=== PATIENT | male | born 1990 | race Caucasian/White ===

== ENCOUNTER 2025-01-11 18:09 | Emergency (ER) | payer OTHER, SELFPAY ==
[2025-01-11 18:12] VITALS: BP 163/86; PULSE 118; RESP 20; TEMP 37.4; O2SAT 98
--- NOTE | 2025-01-11 19:26 | ED.GENADULT ---
HPI - General Adult General Chief complaint: Unspecified Stated complaint: sore throat x10 days Time Seen by Provider: 01/11/25 19:09 History of Present Illness HPI narrative: Patient is a 34-year-old gentleman presents emergency department chief complaint of sore throat runny nose for the last 10 days patient reports he had a low-grade temperature today reports that he has achiness his left upper molars as well patient reports he was using some for strep for about 10 days ago and has when his symptoms started patient reports no abscess Related Data Allergies Allergy/AdvReac Type Severity Reaction Status Date / Time codeine Allergy Unknown Unknown Verified 01/11/25 18:14 Review of Systems Review of Systems: A 10 system review of systems was completed on the patient and is negative except for what is stated in the HPI. Nursing and ancillary documentation was reviewed. PMFSH Family History Family History Grandparent Family history of lung cancer Father Diabetes mellitus Mother Family history of malignant neoplasm of breast in first degree relative Social History Social History Smoking status: Former smoker Smoking end date: 04/10/12 Alcohol intake: current Exam Narrative: GENERAL: Well-appearing, well-nourished, and in no acute distress. HEAD: Normocephalic, atraumatic. EYES: PERRLA and EOMI. ENT: Nares clear, no rhinorrhea or epistaxis. Mucous membranes moist. NECK: Supple. CHEST: Clear to auscultation. No respiratory distress. HEART: Regular rate and rhythm. No murmur heard. Normal peripheral pulses. ABDOMEN: Soft, nontender, nondistended, normal active bowel sounds. EXTREMITIES: Normal range of motion. No edema. SKIN: Warm, dry, no rash. NEURO: No focal deficits. Alert and oriented x3. PSYCH: Normal mood and affect. Course Vital Signs Vital signs: Vital Signs Temperature 37.4 C 01/11/25 18:12 Pulse Rate 118 H 01/11/25 18:12 Respiratory Rate 20 01/11/25 18:12 Blood Pressure 163/86 H 01/11/25 18:12 Pulse Oximetry 98 01/11/25 18:12 Oxygen Delivery Room Air 01/11/25 18:12 Temperature 37.4 C 01/11/25 18:12 Pulse Rate 118 H 01/11/25 18:12 Respiratory Rate 20 01/11/25 18:12 Blood Pressure 163/86 H 01/11/25 18:12 Pulse Oximetry 98 01/11/25 18:12 Oxygen Delivery Room Air 01/11/25 18:12 Medical Decision Making Vital Signs Vital Signs: Vital Signs Temperature 37.4 C 01/11/25 18:12 Pulse Rate 118 H 01/11/25 18:12 Respiratory Rate 20 01/11/25 18:12 Blood Pressure 163/86 H 01/11/25 18:12 Pulse Oximetry 98 01/11/25 18:12 Oxygen Delivery Room Air 01/11/25 18:12 Temperature 37.4 C 01/11/25 18:12 Pulse Rate 118 H 01/11/25 18:12 Respiratory Rate 20 01/11/25 18:12 Blood Pressure 163/86 H 01/11/25 18:12 Pulse Oximetry 98 01/11/25 18:12 Oxygen Delivery Room Air 01/11/25 18:12 Lab Data Labs: Lab Results 01/11/25 01/11/25 Range/Units 19:02 19:29 Influenza A (RT-PCR) Negative (Negative) Influenza B (RT-PCR) Negative (Negative) RSV (RT-PCR) Negative (Negative) SARS-CoV-2 RNA (RT-PCR) Negative (Negative) Group A Strep (PCR) Not detected (Negative) Discharge Plan Discharge Clinical Impression: Acute upper respiratory infection, Pharyngitis, Pain, dental Patient Disposition: Home Condition: Stable Instructions: Antibiotic Form, Upper Respiratory Infection (ED), Toothache (ED) Patient Language: Luxem[place]ish Prescriptions: New amoxicillin 500 mg capsule 500 mg PO Q12H Qty: 20 0RF prednisone 20 mg tablet 40 mg PO DAILY 5 Days Qty: 10 0RF No Action hydrocodone-acetaminophen [Broadbent] 5-325 mg tablet 1 tablet PO Q4H PRN (Reason: pain) Qty: 20 0RF amoxicillin-pot clavulanate [Augmentin] 875-125 mg tablet 1 tablet PO Q12H Qty: 20 0RF amoxicillin-pot clavulanate [Augmentin] 875-125 mg tablet 1 tablet PO Q12H 10 Days Qty: 20 0RF Follow-up/Referrals: Sean,Rajendra Guevara MD [Primary Care Provider] Time of Disposition: 20:03
[2025-01-11 19:43] LABS: Influenza A QL RT-PCR Negative (Negative); Influenza B QL RT-PCR Negative (Negative); RSV RNA, RT-PCR Negative (Negative); SARS-CoV-2 RNA PCR Negative (Negative)
[2025-01-11 19:56] LABS: Strep Group A RT-PCR NOT DETECTED (Negative)
[2025-01-11 20:17] VITALS: BP 113/70; PULSE 113; RESP 18; O2SAT 98
[2025-01-11] MEDS: AMOXICILLIN 500 MG CAPSULE PO (20:28)
== END 2025-01-11 20:33 | disposition home or self-care (01) ==
PROVIDERS: Physician Assistant; Emergency Provider Emergency Medicine; PCP Family Medicine
DX: J06.9 Acute upper respiratory infection, unspecified (principal); J02.9 Acute pharyngitis, unspecified; K08.89 Other specified disorders of teeth and supporting structures; Z87.891 Personal history of nicotine dependence; Z20.822 Contact with and (suspected) exposure to COVID-19
CPT/HCPCS: 87637; 87651; 99283; A9270; J7512